=== PATIENT | female | born 1950 | race Caucasian/White ===

== ENCOUNTER 2019-02-16 10:37 | Observation (INO) | payer OTHER, BC ==
[2019-02-16] MEDS ORDERED: NA CHLORIDE 0.9% 0 ML ONE (11:08)
[2019-02-16] MEDS ORDERED: LORazepam 2 MG/ML VIAL ONE (11:09)
--- NOTE | 2019-02-16 11:13 | RAD REPORT ---
EXAM DESCRIPTION: Lauren Single View02/16/2019 11:06 am CLINICAL HISTORY: cough COMPARISON: none FINDINGS: The lungs appear clear of acute infiltrate. The heart is normal size IMPRESSION: No acute abnormalities displayed
[2019-02-16 11:20] LABS: Absolute Lymphocytes (CBC) 0.6 K/uL (0.7-4.9); Basophils % 0.4 % (0-1.3); Hematocrit 42.1 % (36.0-45.0); Protime INR 0.98; RBC Red Blood Cell Count 4.65 M/uL (3.86-4.86)
--- NOTE | 2019-02-16 11:36 | EKG ---
Test Date: 2019-02-16 Test Time: 10:37:30 Transit Mixer Operator: ELLIE MEASUREMENT RESULTS: Intervals: Rate: 115 NE: 154 QRSD: 78 QT: 342 QTc: 473 Swisher: P: 71 NE: 154 QRS: 27 T: 48 INTERPRETIVE STATEMENTS: Sinus tachycardia Right atrial enlargement Nonspecific ST abnormality Abnormal ECG No previous ECG available for comparison Electronically Signed On 02-16-19 11:35:51 CDT by Henrique Silvestre
[2019-02-16 11:41] LABS: ALT/SGPT 30 U/L (12-78); AST/SGOT 15 U/L (15-37); Albumin 4.4 g/dL (3.4-5.0); Alkaline Phosphatase 125 U/L (45-117); BUN Blood Urea Nitrogen 7 mg/dL (7-18); Bicarbonate 23 mmol/L (21-32); Bilirubin Direct 0.1 mg/dL (0-0.2); Bilirubin Total 0.5 mg/dL (0.2-1.0); Glucose Level 252 mg/dL (74-106); Magnesium 1.9 mg/dL (1.8-2.4); NT PRO-BNP 398 pg/mL (<125); Protein, Total 8.5 g/dL (6.4-8.2); Sodium Level 130 mmol/L (136-145); Troponin (Emerg Dept Use Only) < 0.02 ng/mL (0.0-0.045)
[2019-02-16 11:42] LABS: Potassium 2.4 mmol/L (3.5-5.1)
--- NOTE | 2019-02-16 12:08 | EDPHYS ---
Physician Documentation [facility] Name: Briana Hernandez Age: 68 yrs Sex: Female : 1950 Arrival Date: 02/16/2019 Time: 10:41 Bed 17 Private MD: JAYLEEN Physician Felipe Wood HPI: 02/16 11:20 This 68 yrs old Female presents to ER via EMS with complaints of Probable avery Seizure. 11:20 The patient presents after having a possible seizure episode, no tonic-clonic activity avery was appreciated. Character of seizure(s): Loss of consciousness: the patient did not lose consciousness, Motor activity: generalized. Seizure onset: this morning. Context: the seizure(s) was witnessed, by family, , son. Seizure Hx: the patient has no previous seizure history. Associated injury: The patient did not suffer any apparent associated injury. Current symptoms: Currently, the patient is not experiencing any symptoms. The patient has not experienced similar symptoms in the past. Historical: - Allergies: 10:47 No Known Allergies; ca1 - Home Meds: 15:16 trazodone 50 mg Oral tab 1 tab nightly [Active]; temazepam 30 mg Oral cap 1 cap once ca1 daily [Active]; [place] 7.5-325 mg Oral tab 1 tab every 6 hours [Active]; Butalbital Compound 50-325-40 mg Oral tab 1 tab every 6 hours [Active]; lansoprazole 30 mg oral cpDR 1 cap 2 times per day [Active]; gabapentin 100 mg oral cap 1 caps 3 times per day [Active]; amlodipine 2.5 mg tab 1 tab once daily [Active]; duloxetine 60 mg oral cpDR 2 caps once daily [Active]; lorazepam 1 mg Oral tab 1 tab 3 times per day [Active]; carisoprodol 350 mg Oral tab 1 tab 3 times per day [Active]; - PMHx: 10:47 Hypertension; scoliosis; ca1 - PSHx: 10:47 Neck Surgery; R hip Replacement; ca1 - Immunization history:: Adult Immunizations up to date. - Social history:: Smoking status: Patient/guardian denies using tobacco. - Ebola Screening: : Patient negative for fever greater than or equal to 101.5 degrees Fahrenheit, and additional compatible Ebola Virus Disease symptoms Patient denies exposure to infectious person Patient denies travel to an Ebola-affected area in the 21 days before illness onset No symptoms or risks identified at this time. - Family history:: not pertinent. ROS: 11:20 Constitutional: Negative for fever, chills, and weight loss, Eyes: Negative for injury, avery pain, redness, and discharge, ENT: Negative for injury, pain, and discharge, Neck: Negative for injury, pain, and swelling, Cardiovascular: Negative for chest pain, palpitations, and edema, Respiratory: Negative for shortness of breath, cough, wheezing, and pleuritic chest pain, Abdomen/GI: Negative for abdominal pain, nausea, vomiting, diarrhea, and constipation, Back: Negative for injury and pain, : Negative for injury, bleeding, discharge, and swelling, MS/Extremity: Negative for injury and deformity, Skin: Negative for injury, rash, and discoloration, Psych: Negative for depression, anxiety, suicide ideation, homicidal ideation, and hallucinations, Allergy/Immunology: Negative for hives, rash, and allergies, Endocrine: Negative for neck swelling, polydipsia, polyuria, polyphagia, and marked weight changes, Hematologic/Lymphatic: Negative for swollen nodes, abnormal bleeding, and unusual bruising. 11:20 Neuro: Positive for altered mental status, seizure activity. Exam: 11:20 Constitutional: This is a well developed, well nourished patient who is awake, alert, avery and in no acute distress. Head/Face: Normocephalic, atraumatic. Eyes: Pupils equal round and reactive to light, extra-ocular motions intact. Lids and lashes normal. Conjunctiva and sclera are non-icteric and not injected. Cornea within normal limits. Periorbital areas with no swelling, redness, or edema. ENT: Nares patent. No nasal discharge, no septal abnormalities noted. Tympanic membranes are normal and external auditory canals are clear. Oropharynx with no redness, swelling, or masses, exudates, or evidence of obstruction, uvula midline. Mucous membranes moist. Neck: Trachea midline, no thyromegaly or masses palpated, and no cervical lymphadenopathy. Supple, full range of motion without nuchal rigidity, or vertebral point tenderness. No Meningismus. Chest/axilla: Normal chest wall appearance and motion. Nontender with no deformity. No lesions are appreciated. Cardiovascular: Regular rate and rhythm with a normal S1 and S2. No gallops, murmurs, or rubs. Normal PMI, no JVD. No pulse deficits. Respiratory: Lungs have equal breath sounds bilaterally, clear to auscultation and percussion. No rales, rhonchi or wheezes noted. No increased work of breathing, no retractions or nasal flaring. Abdomen/GI: Soft, non-tender, with normal bowel sounds. No distension or tympany. No guarding or rebound. No evidence of tenderness throughout. Back: No spinal tenderness. No costovertebral tenderness. Full range of motion. Skin: Warm, dry with normal turgor. Normal color with no rashes, no lesions, and no evidence of cellulitis. MS/ Extremity: Pulses equal, no cyanosis. Neurovascular intact. Full, normal range of motion. Psych: Awake, alert, with orientation to person, place and time. Behavior, mood, and affect are within normal limits. 11:20 Neuro: Orientation: is normal, appropriate for stated age, no acute changes, Mentation: slow to respond, Memory: unable to test, Cranial nerves: grossly normal, is grossly normal based on the patient's age, no acute changes, Cerebellar function: is grossly normal based on the patient's age, Motor: moves all fours, Gait: not tested. Vital Signs: 10:47 BP 166 / 96; Pulse 55; Resp 16 S; Temp 97.5(TE); Pulse Ox 100% on R/A; Weight 63.5 kg ca1 (R); Height 5 ft. 7 in. (170.18 cm) (R); Pain 0/10; 10:49 BP 172 / 102; Pulse 112; Resp 16; Pulse Ox 100% on R/A; ca1 11:30 BP 134 / 94; Pulse 110; Resp 16 S; Pulse Ox 100% on R/A; ca1 12:43 BP 162 / 95; Pulse 110; Resp 16 S; Pulse Ox 100% on R/A; ca1 13:59 BP 150 / 102; Pulse 114; Resp 16 S; Pulse Ox 100% on R/A; ca1 15:01 BP 154 / 107; Pulse 103; Resp 14 S; Pulse Ox 99% on R/A; ca1 15:50 BP 152 / 102; Pulse 102; Resp 16 S; Pulse Ox 100% on R/A; ca1 10:47 Body Mass Index 21.93 (63.50 kg, 170.18 cm) ca1 [place] Coma Score: 10:47 Eye Response: spontaneous(4). Verbal Response: oriented(5). Motor Response: obeys ca1 commands(6). Total: 15. MDM: 10:45 Patient medically screened. [facility] 11:24 Data reviewed: vital signs, nurses notes, lab test result(s), EKG, radiologic studies, [facility] CT scan, plain films. 02/16 10:53 Order name: Basic Metabolic Panel; Complete Time: 11:53 [facility] 02/16 10:53 Order name: CBC with Diff; Complete Time: 13:23 [facility] 02/16 10:53 Order name: LFT's; Complete Time: 11:53 [facility] 02/16 10:53 Order name: Magnesium; Complete Time: 11:53 [facility] 02/16 10:53 Order name: NT PRO-BNP; Complete Time: 11:53 [facility] 02/16 10:53 Order name: PT-INR; Complete Time: 11:53 [facility] 02/16 10:53 Order name: Troponin (emerg Dept Use Only); Complete Time: 11:53 [facility] 02/16 10:53 Order name: Urine Culture [facility] 02/16 10:57 Order name: TSH; Complete Time: 11:53 [facility] 02/16 11:20 Order name: Acetaminophen; Complete Time: 13:23 02/16 11:20 Order name: ETOH Level; Complete Time: 13:23 02/16 11:20 Order name: Ptt, Activated; Complete Time: 13:23 02/16 11:20 Order name: Salicylate; Complete Time: 13:23 02/16 11:20 Order name: Urine Drug Screen; Complete Time: 13:23 [facility] 02/16 10:53 Order name: XRAY Chest (1 view); Complete Time: 11:53 [facility] 02/16 10:53 Order name: EKG; Complete Time: 10:54 [facility] 02/16 10:53 Order name: Cardiac monitoring; Complete Time: 11: [facility] 02/16 10:53 Order name: EKG - Nurse/Tech; Complete Time: 11:02/16 11:54 Order name: Phosphorus; Complete Time: 14:45 02/16 12:04 Order name: Procalcitonin; Complete Time: 14:45 [facility] 02/16 12:39 Order name: Urine Dipstick--Ancillary (enter results); Complete Time: 14:45 ss 02/16 12:56 Order name: Manual Differential; Complete Time: 13:23 EDMS 02/16 10:53 Order name: IV Saline Lock; Complete Time: 11:03 [facility] 02/16 10:53 Order name: Labs collected and sent; Complete Time: 11:03 [facility] 02/16 10:53 Order name: O2 Per Protocol; Complete Time: 11: [facility] 02/16 10:53 Order name: O2 Sat Monitoring; Complete Time: 11: [facility] 02/16 10:53 Order name: Seizure Precautions; Complete Time: 11: [facility] 02/16 10:53 Order name: Urine Dipstick-Ancillary (obtain specimen); Complete Time: 12:36 avery Administered Medications: Discontinued: NS 0.9% 1000 ml IV at 125 ml/hr continuous 11:10 Drug: NS 0.9% 1000 ml Route: IV; Rate: 125 ml/hr; Site: right antecubital; ca1 15:26 Follow up: IV Status: Order to discontinue infusion ca1 11:10 Drug: Ativan 1 mg Route: IVP; Site: right antecubital; ca1 14:51 Follow up: Response: No adverse reaction; Marked relief of symptoms ca1 11:26 Drug: NS 0.9% 500 ml Route: IV; Rate: bolus; Site: right antecubital; ca1 12:10 Follow up: Response: No adverse reaction; IV Status: Completed infusion; IV Intake: ca1 500ml 12:40 Drug: Potassium Chloride 20 mEq Route: IV; Rate: per protocol; Site: right antecubital; ca1 14:48 Follow up: Response: No adverse reaction; IV Status: Completed infusion ca1 12:40 Drug: Potassium Effervescent Tablet 50 mEq Route: PO; ca1 14:51 Follow up: Response: No adverse reaction ca1 12:40 Drug: Rocephin 1 grams Route: IV; Rate: per protocol; Site: right antecubital; ca1 14:51 Follow up: Response: No adverse reaction; IV Status: Completed infusion ca1 14:54 Drug: Petaca (7.5 mg-325 mg) 1 tabs {Note: RASS - 0.} Route: PO; ca1 15:16 Follow up: Response: No adverse reaction; Pain is decreased ca1 15:25 Follow up: Response: No adverse reaction; Pain is decreased; RASS: Alert and Calm (0) ca1 15:16 Drug: NS 0.9% with KCl 20 mEq/L 1000 ml Route: IV; Rate: 150 ml/hr; Site: right ca1 antecubital; 15:17 Follow up: Response: No adverse reaction; IV Status: Infusion continued upon admission ca1 15:25 Follow up: Response: No adverse reaction; IV Status: Infusion continued upon admission ca1 Disposition: 02/16/19 12:07 Hospitalization ordered by Martin Mac for Inpatient Admission. Preliminary diagnosis are Weakness, Hypokalemia, Epileptic seizures related to external causes, Chronic pain syndrome. - Bed requested for Telemetry/MedSurg (Inpatient). - Status is Inpatient Admission. ca1 - Condition is Fair. - Problem is new. - Symptoms have improved. UTI on Admission? No Signatures: Dispatcher [employer] EDMS Rika Bautista Corey, MD MD cha Acob, Cheryl, RN RN ca1 Corrections: (The following items were deleted from the chart) 14:56 12:07 Hospitalization Ordered by Martin Mac DO for Inpatient Admission. Preliminary bd diagnosis is Weakness; Hypokalemia; Epileptic seizures related to external causes; Chronic pain syndrome. Bed requested for Telemetry/MedSurg (Inpatient). Status is Inpatient Admission. Condition is Fair. Problem is new. Symptoms have improved. UTI on Admission? No. avery 15:16 10:47 Home Meds: unknown Antihypertensive Med; ca1 ca1 15:56 14:56 02/16/2019 12:07 Hospitalization Ordered by Martin Mac DO for Inpatient ca1 Admission. Preliminary diagnosis is Weakness; Hypokalemia; Epileptic seizures related to external causes; Chronic pain syndrome. Bed requested for Telemetry/MedSurg (Inpatient). Status is Inpatient Admission. Condition is Fair. Problem is new. Symptoms have improved. UTI on Admission? No. bd
--- NOTE | 2019-02-16 12:08 | ER ---
Nurse's Notes [facility] Name: Briana Hernandez Age: 68 yrs Sex: Female : 1950 Arrival Date: 02/16/2019 Time: 10:41 Bed 17 Private MD: Diagnosis: Weakness;Hypokalemia;Epileptic seizures related to external causes;Chronic pain syndrome Presentation: 02/16 10:41 Presenting complaint: EMS states: Pt's family reported focal seizures started last ca1 night and this morning that has been progressive. On scene pt appears very confused, oriented to none and combative. Pt has not NO history of seizures. Transition of care: patient was not received from another setting of care. Onset of symptoms was February 16, 2019 at 10:00. Risk Assessment: Do you want to hurt yourself or someone else? Patient reports no desire to harm self or others. Initial Sepsis Screen: Does the patient meet any 2 criteria? No. Patient's initial sepsis screen is negative. Does the patient have a suspected source of infection? No. Patient's initial sepsis screen is negative. Care prior to arrival: None. 10:41 Method Of Arrival: EMS: [facility] ca1 10:41 Acuity: [place] 3 ca1 Triage Assessment: 10:47 General: Appears in no apparent distress. comfortable, Behavior is calm, cooperative, ca1 appropriate for age. Pain: Denies pain. Neuro: Level of Consciousness is awake, alert, obeys commands, Oriented to person, place, situation. Historical: - Allergies: 10:47 No Known Allergies; ca1 - Home Meds: 15:16 trazodone 50 mg Oral tab 1 tab nightly [Active]; temazepam 30 mg Oral cap 1 cap once ca1 daily [Active]; [place] 7.5-325 mg Oral tab 1 tab every 6 hours [Active]; Butalbital Compound 50-325-40 mg Oral tab 1 tab every 6 hours [Active]; lansoprazole 30 mg oral cpDR 1 cap 2 times per day [Active]; gabapentin 100 mg oral cap 1 caps 3 times per day [Active]; amlodipine 2.5 mg tab 1 tab once daily [Active]; duloxetine 60 mg oral cpDR 2 caps once daily [Active]; lorazepam 1 mg Oral tab 1 tab 3 times per day [Active]; carisoprodol 350 mg Oral tab 1 tab 3 times per day [Active]; - PMHx: 10:47 Hypertension; scoliosis; ca1 - PSHx: 10:47 Neck Surgery; R hip Replacement; ca1 - Immunization history:: Adult Immunizations up to date. - Social history:: Smoking status: Patient/guardian denies using tobacco. - Ebola Screening: : Patient negative for fever greater than or equal to 101.5 degrees Fahrenheit, and additional compatible Ebola Virus Disease symptoms Patient denies exposure to infectious person Patient denies travel to an Ebola-affected area in the 21 days before illness onset No symptoms or risks identified at this time. - Family history:: not pertinent. Screenin:49 Abuse screen: Denies threats or abuse. Denies injuries from another. Nutritional ca1 screening: No deficits noted. Tuberculosis screening: No symptoms or risk factors identified. Fall Risk Secondary diagnosis (15 points) seizures, IV access (20 points). Total Alvarado Fall Scale indicates Low Risk Score (25-44 pts). Fall prevention measures have been instituted. Side Rails Up X 2 Frequent Obs/Assesments occuring As available Patient and Family Educated on Fall Prevention Program and strategies. Assessment: 10:49 General: Appears in no apparent distress. comfortable, Behavior is cooperative, ca1 appropriate for age, anxious. Pain: Denies pain. Neuro: Level of Consciousness is awake, alert, obeys commands, Oriented to person, place, situation, Engineering Writer are equal bilaterally Moves all extremities. Speech is normal, Facial symmetry appears normal. Cardiovascular: Heart tones S1 S2 present Capillary refill < 3 seconds Patient's skin is warm and dry. Rhythm is sinus tachycardia. Respiratory: Airway is patent Respiratory effort is even, unlabored, Respiratory pattern is regular, symmetrical, Breath sounds are clear bilaterally. GI: Abdomen is flat, non-distended, Bowel sounds present X 4 quads. Abd is soft and non tender X 4 quads. : No deficits noted. No signs and/or symptoms were reported regarding the genitourinary system. EENT: No deficits noted. No signs and/or symptoms were reported regarding the EENT system. Derm: Skin is intact, is healthy with good turgor, Skin is pink, warm \T\ dry. Musculoskeletal: Circulation, motion, and sensation intact. Capillary refill < 3 seconds, Range of motion:. 11:14 Reassessment: Pt twitching and jerking at this time. Pt still awake at this time and ca1 able to follow commands. Dr. Wood at bedside. 11:40 Reassessment: Patient appears in no apparent distress at this time. Patient and/or ca1 family updated on plan of care and expected duration. Pain level reassessed. Patient is alert, oriented x 3, equal unlabored respirations, skin warm/dry/pink. 12:41 Reassessment: Patient appears in no apparent distress at this time. Patient and/or ca1 family updated on plan of care and expected duration. Pain level reassessed. Patient is alert, oriented x 3, equal unlabored respirations, skin warm/dry/pink. Dr. Cedillot bedside. 13:59 Reassessment: Patient appears in no apparent distress at this time. Pt's eyes closed, ca1 resting. Equal and unlabored breathing, skin pink, warm and dry. No episodes of twitching at this time. 15:01 Reassessment: Patient appears in no apparent distress at this time. Patient and/or ca1 family updated on plan of care and expected duration. Pain level reassessed. Patient is alert, oriented x 3, equal unlabored respirations, skin warm/dry/pink. 15:54 Reassessment: Patient appears in no apparent distress at this time. Patient is alert, ca1 oriented x 3, equal unlabored respirations, skin warm/dry/pink. Vital Signs: 10:47 BP 166 / 96; Pulse 55; Resp 16 S; Temp 97.5(TE); Pulse Ox 100% on R/A; Weight 63.5 kg ca1 (R); Height 5 ft. 7 in. (170.18 cm) (R); Pain 0/10; 10:49 BP 172 / 102; Pulse 112; Resp 16; Pulse Ox 100% on R/A; ca1 11:30 BP 134 / 94; Pulse 110; Resp 16 S; Pulse Ox 100% on R/A; ca1 12:43 BP 162 / 95; Pulse 110; Resp 16 S; Pulse Ox 100% on R/A; ca1 13:59 BP 150 / 102; Pulse 114; Resp 16 S; Pulse Ox 100% on R/A; ca1 15:01 BP 154 / 107; Pulse 103; Resp 14 S; Pulse Ox 99% on R/A; ca1 15:50 BP 152 / 102; Pulse 102; Resp 16 S; Pulse Ox 100% on R/A; ca1 10:47 Body Mass Index 21.93 (63.50 kg, 170.18 cm) ca1 [place] Coma Score: 10:47 Eye Response: spontaneous(4). Verbal Response: oriented(5). Motor Response: obeys ca1 commands(6). Total: 15. ED Course: 10:41 Patient arrived in ED. ca1 10:44 EKG done, by consultant technology. reviewed by Edwardo Pinzon MD. sm3 10:45 Triage completed. ca1 10:45 Felipe Wood MD is Attending Physician. avery 10:47 Arm band placed on right wrist. EKG completed in triage. Results shown to MD. ca1 10:49 No provider procedures requiring assistance completed. ca1 10:49 Patient has correct armband on for positive identification. Placed in gown. Bed in low ca1 position. Call light in reach. Side rails up X2. Seizure precautions initiated. monitor and storage bin tender on. Pulse ox on. NIBP on. Warm blanket given. 11:00 Initial lab(s) drawn, by me, sent to lab. Inserted saline lock: 22 gauge in right dh3 antecubital area, using aseptic technique. 11:05 Ness Wise, RN is Primary Nurse. ca1 11:06 XRAY Chest (1 view) In Process Unspecified. EDMS 11:08 Basic Metabolic Panel Sent. ca1 12:04 Martin Mac DO is Hospitalizing Provider. [facility] 12:30 Urine collected: clean catch specimen, clear. 3 12:30 Assisted to bedside commode. pt soiled herself. dh3 15:16 Patient admitted, IV remains in place. ca1 Administered Medications: Discontinued: NS 0.9% 1000 ml IV at 125 ml/hr continuous 11:10 Drug: NS 0.9% 1000 ml Route: IV; Rate: 125 ml/hr; Site: right antecubital; ca1 15:26 Follow up: IV Status: Order to discontinue infusion ca1 11:10 Drug: Ativan 1 mg Route: IVP; Site: right antecubital; ca1 14:51 Follow up: Response: No adverse reaction; Marked relief of symptoms ca1 11:26 Drug: NS 0.9% 500 ml Route: IV; Rate: bolus; Site: right antecubital; ca1 12:10 Follow up: Response: No adverse reaction; IV Status: Completed infusion; IV Intake: ca1 500ml 12:40 Drug: Potassium Chloride 20 mEq Route: IV; Rate: per protocol; Site: right antecubital; ca1 14:48 Follow up: Response: No adverse reaction; IV Status: Completed infusion ca1 12:40 Drug: Potassium Effervescent Tablet 50 mEq Route: PO; ca1 14:51 Follow up: Response: No adverse reaction ca1 12:40 Drug: Rocephin 1 grams Route: IV; Rate: per protocol; Site: right antecubital; ca1 14:51 Follow up: Response: No adverse reaction; IV Status: Completed infusion ca1 14:54 Drug: [place] (7.5 mg-325 mg) 1 tabs {Note: RASS - 0.} Route: PO; ca1 15:16 Follow up: Response: No adverse reaction; Pain is decreased ca1 15:25 Follow up: Response: No adverse reaction; Pain is decreased; RASS: Alert and Calm (0) ca1 15:16 Drug: NS 0.9% with KCl 20 mEq/L 1000 ml Route: IV; Rate: 150 ml/hr; Site: right ca1 antecubital; 15:17 Follow up: Response: No adverse reaction; IV Status: Infusion continued upon admission ca1 15:25 Follow up: Response: No adverse reaction; IV Status: Infusion continued upon admission ca1 Intake: 12:10 IV: 500ml; Total: 500ml. ca1 Outcome: 12:07 Decision to Hospitalize by Provider. avery 15:40 Admitted to Med/surg accompanied by tech, family with patient, via stretcher, room 201, ca1 with chart, Report called to SURJIT Hansen 15:40 Condition: stable ca1 15:40 Instructed on the need for admit. 15:56 Patient left the ED. ca1 Signatures: Dispatcher [employer] EDMS Felipe Wood MD MD cha Herrera, Deanna 3 Rosangela Conteh 3 Ness Wise RN RN ca1 Corrections: (The following items were deleted from the chart) 14:51 12:10 NS 0.9% with KCl 20 mEq/L 1000 ml IV at 150 ml/hr in right antecubital ca1 ca1 15:16 10:47 Home Meds: unknown Antihypertensive Med; ca1 ca1
[2019-02-16] MEDS ORDERED: NA CHLORIDE 0.9% 1,000 ML ONE (12:11)
[2019-02-16] MEDS ORDERED: KCL 20 MEQ/100 mL IVPB 20 MEQ/100 ML BAG IV ONE (12:13)
[2019-02-16] MEDS ORDERED: CEFTRIAXONE/SWI 1gm 1 GM/10 ML SYR ONE (12:13)
[2019-02-16] MEDS ORDERED: POTASSIUM 25 MEQ EFFERV TAB ONE (12:13)
[2019-02-16 12:51] LABS: Barbiturates NEGATIVE (NEGATIVE); Benzodiazepines NEGATIVE (NEGATIVE); Cocaine NEGATIVE (NEGATIVE); METHAMPHETAM NEGATIVE (NEGATIVE); Methadone NEGATIVE (NEGATIVE); Opiates NEGATIVE (NEGATIVE); Phencyclidine NEGATIVE (NEGATIVE); THC Cannibis NEGATIVE (NEGATIVE)
[2019-02-16 12:56] LABS: Blood Morphology Comment NOT SEEN (NOT SEEN); Platelet Estimate ADEQ
[2019-02-16 13:23] LABS: Urine Blood 1+ (NEG); Urine Glucose 1+ (NEG); Urine Protein 2+ (NEG); Urine Specific Gravity 1.015 (1.005-1.030)
--- NOTE | 2019-02-16 13:47 | P.HP ---
Certification for Inpatient Patient admitted to: Observation With expected LOS: <2 Midnights Patient will require the following post-hospital care: None Practitioner: I am a practitioner with admitting privileges, knowledge of patient current condition, hospital course, and medical plan of care. Services: Services provided to patient in accordance with Admission requirements found in Title 42 Section 412.3 of the Code of Federal Regulations Patient History Date of Service: 02/16/19 Primary Care Provider: Dr. Carreno([place], [place]) Reason for admission: Altered mental status History of Present Illness: 68-year-old female with history of hypertension, chronic pain presented to the emergency room with altered mental status. Patient does not recall the events clearly. By the time I arrived she was back to her baseline. Some information obtained from the ER physician and . reported that patient is taking chronic pain medication. She apparently stopped taking her pain medication late last week. They are originally from [place]. The ER vacationing and have a home near the area. There is no mention of fever, chills. No sick contacts noted. Apparently about 4:00 a.m. the patient became contracted is started to have some shakes. This resolved that lasted about 20 min. Then around 11:00 a.m. she apparently got up felt lightheaded and fell. She appeared to have a syncopal episode. As mentioned above patient does not recall the events she does admit that she stop taking her pain medication late last week. She has been taking pain medication for quite some time. In the ER patient evaluated. Initial blood pressure slightly elevated. Pro calcitonin negative. Urine drug screen negative. Tsh within normal range. Troponin unremarkable. White count 14.2, hemoglobin 14. Sodium 130, potassium 2.4. Creatinine 1.09 with a GFR 50. Glucose 252. Chest x-ray unremarkable. When I saw the patient in the ER, she is was very appropriate. Patient had been given IV fluids. Home medications list reviewed: Yes - Past Medical/Surgical History Diabetic: No -: Hypertension -: Chronic pain Past Surgical History: Patient denies surgical history Psychosocial/ Personal History: Patient is - Family History Mother -: Heart disease, Diabetes, Stroke - Social History Smoking Status: Never smoker Alcohol use: No CD- Drugs: No Caffeine use: No Place of Residence: Home Review of Systems General: Weakness, As per HPI Eyes: Unremarkable ENT: Unremarkable Respiratory: Unremarkable Cardiovascular: Light Headedness, As per HPI Gastrointestinal: Unremarkable Genitourinary: Unremarkable Musculoskeletal: Unremarkable Integumentary: Unremarkable Neurological: As per HPI Lymphatics: Unremarkable Physical Examination - Physical Exam General: Alert, In no apparent distress, Oriented x3, Cooperative HEENT: Atraumatic, Normocephalic, PERRLA, Other (Dry mucous membranes) Neck: Supple, No Thyromegaly Respiratory: Clear to auscultation bilaterally, Normal air movement Cardiovascular: Normal pulses, Regular rate/rhythm Gastrointestinal: Normal bowel sounds, Soft and benign, Non-distended, No ascites, No tenderness, No masses, No rebound, No guarding Musculoskeletal: No erythema, No tenderness, No warmth Integumentary: No tenderness/swelling, No erythema, No warmth, No cyanosis Neurological: Normal speech, Normal strength at 5/5 x4 extr, Normal tone, Sensation intact, Cranial nerves 3-12 intact, Normal affect - Studies Laboratory Data (last 24 hrs) 02/16/19 11:00: PT 11.6, INR 0.98 02/16/19 11:00: WBC 14.2 H, Hgb 14.5, Hct 42.1, Plt Count 436 H 02/16/19 11:00: Sodium 130 L, Potassium 2.4 L*, BUN 7, Creatinine 1.09, Glucose 252 H, Magnesium 1.9, Total Bilirubin 0.5, AST 15, ALT 30, Alkaline Phosphatase 125 H Assessment and Plan - Plan Impression: Acute encephalopathy likely dehydration with noted hyponatremia and hypokalemia Syncope likely related to above with possible chronic pain medication withdrawal Chronic pain Hypertension Hyperglycemia without history of diabetes Plan: Acute encephalopathy likely dehydration with noted hyponatremia and hypokalemia : Patient will be admitted for further evaluation. Patient appears dehydrated. She does not appear septic. Will continue with IV fluids. Will replace electrolytes and monitor closely. Urinalysis unremarkable. Chest x- ray unremarkable. Will obtain blood cultures. Will need to rule out CVA. Will start aspirin, Lipitor, metoprolol. Will provide DVT prophylaxis-Lovenox. Will obtain echocardiogram, carotid Doppler, stroke protocol MRI to further assess. Will have physical therapy assess ambulation. Will provide medication for pain. Will need to obtain home medication to further evaluate. I will turn the service over to Dr. Lipscomb tomorrow. I will go over the plan of care with her. Anticipate discharge tomorrow if clinically improved. Syncope likely related to above with possible chronic pain medication withdrawal : Syncope may be related to dehydration versus chronic pain withdrawal. Will provide medication for pain. Continue with above plan of care. Chronic pain: Obtain home medication. Will provide medication for pain. Hypertension: Will start metoprolol. Will need to obtain home medication. Hyperglycemia without history of diabetes: Will check A1c. Will monitor Accu- Cheks and provide sliding scale. Discharge Plan: Home Plan to discharge in: 24 Hours - Advance Directives Does patient have a Living Will: No Does patient have a Durable POA for Healthcare: No - Code Status/Comfort Care Code Status Assessed: Yes (Patient is full code) Time Spent Managing Pts Care (In Minutes): 55
[2019-02-16] MEDS ORDERED: HYDROCODONE/APAP 7.5/325 MG TAB ONE (14:47)
[2019-02-16] MEDS ORDERED: NS KCL 20MEQ 1,000 ML IV ONE ×2 (15:11→16:00)
[2019-02-16] MEDS ORDERED: LORazepam 2 MG/ML VIAL IV PRN (16:52)
[2019-02-16] MEDS ORDERED: ACETAMINOPHEN 500 MG TAB PO PRN (16:52)
[2019-02-16] MEDS ORDERED: ONDANSETRON 4 MG/2 ML VIAL IV PRN (16:52)
[2019-02-16] MEDS: INSULIN -REGULAR HUMAN 50 UNIT/0.5 ML ML SQ SCH ×2 (16:52→21:00)
[2019-02-16] MEDS ORDERED: HYDROCODONE/APAP 7.5/325 MG TAB PO PRN (16:52)
[2019-02-16] MEDS: NA CHLORIDE 0.9% 1,000 ML IV SCH (16:52)
[2019-02-16 17:17] VITALS: O2SAT 98
[2019-02-16 17:57] LABS: CKMB Creatine Kinase MB 3.4 ng/mL (0.3-3.6); Troponin I 0.05 ng/mL (0.0-0.045)
[2019-02-16] MEDS: METOPROLOL TAR 25 MG TAB PO SCH (18:42)
--- NOTE | 2019-02-16 18:49 | RAD REPORT ---
EXAM DESCRIPTION: MRI - Brain Wo Cont - 02/16/2019 6:15 pm CLINICAL HISTORY: Seizure COMPARISON: none TECHNIQUE: Axial, sagittal, and coronal magnetic images of the brain were obtained. Contrast was not requested FINDINGS: Mild to moderate signal within periventricular, deep and subcortical white matter Diffusion-weighted/ADC mapping does not reveal evidence of acute infarction. The ventricles are normal caliber. An extra-axial fluid collection is not present. Hippocampal gyri are normal size and signal Mild to moderate signal left ethmoid sinus IMPRESSION: Mild to moderate signal within periventricular, deep and subcortical white probably isch emic changes secondary to small vessel disease Mild to moderate ethmoid sinusitis
[2019-02-16 19:04] VITALS: BMI 21.9
--- NOTE | 2019-02-16 20:45 | RAD REPORT ---
EXAM DESCRIPTION: MRI - MRA Head Wo Cont - 02/16/2019 6:16 pm CLINICAL HISTORY: Syncope COMPARISON: None. TECHNIQUE: Magnetic resonance angiogram was performed. 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 Diminished signal is present within the distal right internal carotid artery The remainder of the anterior cerebral, middle cerebral, posterior cerebral, distal internal carotid and basilar arteries do not demonstrate a significant stenosis. An aneurysm is not displayed. 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 As pathology can also result in this appearance. It is recommended that the patient have a CT angiogram of the head for further evaluation
[2019-02-16] MEDS ORDERED: ATORVASTATIN 40 MG TAB PO SCH (21:00)
[2019-02-16] MEDS ORDERED: LORazepam 2 MG/ML VIAL IV SCH (23:00)
[2019-02-17 01:18] LABS: CKMB Creatine Kinase MB 4.2 ng/mL (0.3-3.6); Troponin I 0.03 ng/mL (0.0-0.045)
[2019-02-17 01:55] LABS: Potassium 3.5 mmol/L (3.5-5.1)
[2019-02-17] MEDS ORDERED: POTASSIUM 25 MEQ EFFERV TAB ONE (02:02)
[2019-02-17] MEDS ORDERED: POTASSIUM 25 MEQ EFFERV TAB PO ONE (02:11)
[2019-02-17] MEDS: NA CHLORIDE 0.9% 1,000 ML IV SCH ×2 (04:46→12:52)
[2019-02-17] MEDS: METOPROLOL TAR 25 MG TAB PO SCH (05:55)
[2019-02-17 06:02] LABS: BUN Blood Urea Nitrogen 2 mg/dL (7-18); Bicarbonate 24 mmol/L (21-32); Glucose Level 115 mg/dL (74-106); HDL Cholesterol 65 mg/dL (40-60); LDL Cholesterol, Calculated 136 (<130); Magnesium 1.5 mg/dL (1.8-2.4); Potassium 3.7 mmol/L (3.5-5.1); Sodium Level 134 mmol/L (136-145)
[2019-02-17 06:31] LABS: Absolute Lymphocytes (CBC) 1.3 K/uL (0.7-4.9); Basophils % 0.2 % (0-1.3); Lymphocytes % 10.6 % (15.3-44.8); MPV 8.1 fL (7.6-11.3); RBC Red Blood Cell Count 3.95 M/uL (3.86-4.86)
--- NOTE | 2019-02-17 06:32 | RAD REPORT ---
EXAM DESCRIPTION: - CP - 02/16/2019 9:38 pm CLINICAL HISTORY: Syncope COMPARISON: None. TECHNIQUE: Real-time sonographic evaluation of both carotid systems was performed. Houser scale and Do ppler interrogation were performed with waveform tracing bilaterally. FINDINGS: Normal high resistance waveforms are noted in both external carotid arteries. The common c arotid arteries and internal carotid arteries show normal low resistance waveforms. Mild plaquing changes are present. On visual inspection, no significant luminal narrowing. Peak systo lic and end diastolic velocity values and the ICA/CCA ratios are in the non-hemodynamically significa nt range. Antegrade flow seen in both vertebral arteries. Velocity values and ratios were recorded and are retained in the patient's imaging records. IMPRESSION: No significant atherosclerotic changes noted. No evidence of a hemodynamically significant stenosis.
[2019-02-17] MEDS: INSULIN -REGULAR HUMAN 50 UNIT/0.5 ML ML SQ SCH ×2 (07:30→11:30)
[2019-02-17] MEDS ORDERED: INFLUENZA VACCINE (for 3y+) 0.5 ML DOSE IMVAC ONE (08:00)
[2019-02-17] MEDS ORDERED: Magnesium Sulfate 2gm IVPB 2 G/50 ML BAG IV ONE (09:00)
[2019-02-17] MEDS ORDERED: ENOXAPARIN 40 MG/0.4 ML SQ SCH (09:00)
[2019-02-17] MEDS ORDERED: ASPIRIN EC 81 MG TAB PO SCH (09:00)
[2019-02-17 13:14] VITALS: TEMP 98.3
--- NOTE | 2019-02-17 15:54 | P.SSS ---
Patient History Date of Service: 02/17/19 Primary Care Provider: Dr. Carreno([place], [place]) Reason for admission: Altered mental status History of Present Illness: 68-year-old female with history of hypertension, chronic pain presented to the emergency room with altered mental status. Patient does not recall the events clearly. By the time I arrived she was back to her baseline. Some information obtained from the ER physician and . reported that patient is taking chronic pain medication. She apparently stopped taking her pain medication late last week. They are originally from [place]. The ER vacationing and have a home near the area. There is no mention of fever, chills. No sick contacts noted. Apparently about 4:00 a.m. the patient became contracted is started to have some shakes. This resolved that lasted about 20 min. Then around 11:00 a.m. she apparently got up felt lightheaded and fell. She appeared to have a syncopal episode. As mentioned above patient does not recall the events she does admit that she stop taking her pain medication late last week. She has been taking pain medication for quite some time. In the ER patient evaluated. Initial blood pressure slightly elevated. Pro calcitonin negative. Urine drug screen negative. Tsh within normal range. Troponin unremarkable. White count 14.2, hemoglobin 14. Sodium 130, potassium 2.4. Creatinine 1.09 with a GFR 50. Glucose 252. Chest x-ray unremarkable. When I saw the patient in the ER, she is was very appropriate. Patient had been given IV fluids. Allergies aspirin Allergy (Verified 02/16/19 14:43) Hives/Rash Home Medications: Amlodipine Besylate 1 tab PO DAILY 02/16/19 Butalbit/Acetamin/Caff/Codeine [Agzljh-Wlufapyyguo-Tuty-Codein] 1 each PO Q6H PRN 02/16/19 Carisoprodol 1 tab PO TID PRN 02/16/19 Duloxetine HCl 120 mg PO DAILY 02/16/19 Gabapentin 300 mg PO TID 02/16/19 Hydrocodone Bit/Acetaminophen [Hydrocodon-Acetaminoph 7.5-325] 1 tab PO Q6H PRN 02/16/19 LORazepam [Lorazepam] 2 tab PO TID PRN 02/16/19 Lansoprazole 1 tab PO BID 10/28/19 Ondansetron [Ondansetron Odt] 1 tab SL Q8H PRN 02/16/19 Temazepam 30 mg PO BEDTIME PRN 02/16/19 Trazodone [Desyrel*] 1 - 3 tab PO BEDTIME PRN 02/16/19 - Past Medical/Surgical History Has patient received pneumonia vaccine in the past: Yes Diabetic: No -: Hypertension -: Chronic pain -: Arthritis -: right hip replacement / [place] Psychosocial/ Personal History: Patient is - Family History Mother History Unknown: Yes -: Heart disease, Stroke Notes: AFib Father History Unknown: Yes -: Heart disease - Social History Smoking Status: Never smoker Alcohol use: No CD- Drugs: No Caffeine use: No Place of Residence: Home Review of Systems 10-point ROS is otherwise unremarkable Physical Examination - Vital Signs Temperature: 98.3 F Blood Pressure: 173/91 Pulse: 87 Respirations: 18 Pulse Ox (%): 100 - Physical Exam General: Alert, In no apparent distress HEENT: Atraumatic, PERRLA, Mucous membr. moist/pink, EOMI, Sclerae nonicteric Neck: Supple, 2+ carotid pulse no bruit, No LAD, Without JVD or thyroid abnormality Respiratory: Clear to auscultation bilaterally, Normal air movement Cardiovascular: Regular rate/rhythm, Normal S1 S2 Gastrointestinal: Normal bowel sounds, No tenderness Musculoskeletal: No tenderness Integumentary: No rashes Neurological: Normal gait, Normal speech, Normal strength at 5/5 x4 extr, Normal tone, Normal affect Lymphatics: No axilla or inguinal lymphadenopathy Treatment Summary: Discharge Diagnosis: Acute encephalopathy likely dehydration with noted hyponatremia and hypokalemia Syncope likely related to above with possible chronic pain medication withdrawal Chronic pain Hypertension Hyperglycemia without history of diabetes Hospital Course: Over the course of the hospital stay patient remained stable. Patient was he had seen and evaluated in the ER by the hospitalist team. Patient had extensive workup done here in the hospital along with MRI of the scan. MRI and CT scan were both negative for any acute abnormality. Carotid Dopplers were done which was also negative for any acute abnormality. Patient is altered mental status was most likely secondary to hyponatremia which resolved here after IV fluids. Patient then started having tremors while here in the hospital this EEG done however EEG was negative for any acute seizure-like activity. Neurology was consulted who recommended patient to be discharged home and have outpatient follow up for further testing. Neurology recommended patient does not need any medications at this time. Most likely has essential tremors related to stress. However neurology will follow up with patient outpatient. Once patient did well overall. Was monitor here in the hospital and any acute abnormality was ruled out. Patient was charged home under stable condition - Disposition Condition: GOOD Diet: Regular Activity: Ad andre
[2019-02-17 17:03] VITALS: BP 161/78
--- NOTE | 2019-02-18 08:15 | ECHO ---
HEIGHT: 5 ft 7 in WEIGHT: 140 lb 0 oz DATE OF STUDY: 02/17/[address]: Martin Mac DO 2-DIMENSIONAL: YES M.MODE: YES DOPPLER: YES COLOR FLOW: YES TDS: NO PORTABLE: NO DEFINITY: NO BUBBLE STUDY: NO DIAGNOSIS: SYNCOPE CARDIAC HISTORY: CATHERIZATION: NO SURGERY: NO PROSTHETIC VALVE: NO PACEMAKER: NO MEASUREMENTS (cm) DIASTOLIC (NORMALS) SYSTOLIC (NORMALS) IVSd 0.8 (0.6-1.2) LA Diam 2.8 (1.9-4.0) LVEF 56% LVIDd 4.5 (3.5-5.7) LVIDs 3.1 (2.0-3.5) %FS 29% LVPWd 1.1 (0.6-1.2) Ao Diam 2.8 (2.0-3.7) 2 DIMENSIONAL ASSESSMENT: RIGHT ATRIUM: NORMAL LEFT ATRIUM: NORMAL RIGHT VENTRICLE: NORMAL LEFT VENTRICLE: NORMAL TRICUSPID VALVE: NORMAL MITRAL VALVE: NORMAL PULMONIC VALVE: NORMAL AORTIC VALVE: NORMAL PERICARDIAL EFFUSION: NONE AORTIC ROOT: NORMAL LEFT VENTRICULAR WALL MOTION: NORMAL DOPPLER/COLOR FLOW: NORMAL COMMENTS: NORMAL 2D ECHOCARDIOGRAM WITH DOPPLER. NO EFFUSION. NO AORTIC STENOSIS. TECHNOLOGIST: Cutr REECE
--- NOTE | 2019-02-18 11:06 | EEG ---
CHART: [id number] TEST ID#: [id number] DATE OF STUDY: 02/17/2019 THE EEG WAS RECORDED [place] IN THE PATIENTS ROOMS ON A 17 CHANNEL MACHINE. ELECTRODES WERE APPLIED IN THE USUAL MANNER USING THE INTERNATIONAL 10-20 SYSTEM. THE WAKING BACKGROUND RHYTHM IN THIS RECORD CONSISTS OF WELL DEVELOPED AND WELL ORGANIZED WAVES OF 9.5 HZ., MAXIMAL IN THE POSTERIOR HEAD REGIONS WHICH ATTENUATE NORMALLY WITH EYE OPENING. EXCESS LOW-VOLTAGE FAST ACTICITY IS EXPRESSED IN THE FROTNAL REGIONS. THERE ARE NO FOCAL OR LATERALIZING FEATURES. NO EPILEPTIFORM ACTIVITY APPEARS. SLEEP DID NOT OCCUR. HYPERVENTILATION WAS NOT PERFORMED. PHOTIC STIMULATION PRODUCED FAIR DRIVING BILATERALLY. IMPRESSION: NORMAL EEG FOR THE AGE OF THE PATIENT IN [place]. THE PRESENCE OF EXCESS LOW VOLTAGE FAST ACTIVITY IS A MEDICATION EFFECT.
== END 2019-02-17 17:04 | disposition home or self-care (01) ==
LOC: ER 10:37 → ERHOLD 13:04 → 2ND 15:34
PROVIDERS: ADMIT Family Medicine; ATTEND Family Medicine
DX: E87.1 Hypo-osmolality and hyponatremia (principal); E87.6 Hypokalemia; R55 Syncope and collapse; G93.40 Encephalopathy, unspecified; R73.9 Hyperglycemia, unspecified; I10 Essential (primary) hypertension; G89.29 Other chronic pain
CPT/HCPCS: 96365; 96361; 96368; 95816; 93005; 93306; 87040 ×2; 87088; 85025 ×2; 87086; 80048 ×2; 36415; 80320; 83735 ×2; 82550 ×2; 80329 ×2; 84100; 84132; 85610; 80061; 82947 ×5; 80076; 80307 ×8; 85730; 84443; 81003; 83036; 84484 ×3; 82553 ×2; 84145; 83880; 87804 ×2; 71045; 93880; 70551; 70544; 97116; 97161; 96375; 99285; 96366; J3475; J0696; J7030 ×3; G0378 ×3